=== PATIENT | male | born 2000 | race Caucasian/White ===

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

== ENCOUNTER 2020-08-27 11:53 | Emergency (ER) | payer MEDICAID ==
[2020-08-27 12:04] VITALS: BP 145/89
--- NOTE | 2020-08-27 12:15 | ED Physician Documentation ---
History of Present Illness - Stated complaint Stated Complaint: LT WRIST PAIN - Chief complaint Chief Complaint: Ext Problem - Additonal information Additional information: 20-year-old male presents emergency department for evaluation of acute left wrist pain sustained after a FOOSH while skateboarding 2 days ago. Is pain over the distal radius without deformity. He has been wearing a wrist splint as he suspects he fractured it. Denies any previous history of injury to this wrist. Patient is right-hand dominant Review of Systems Constitutional: reports: Reviewed and negative Ears: reports: Reviewed and negative Nose: reports: Reviewed and negative Cardiac: reports: Reviewed and negative Respiratory: reports: Reviewed and negative GI: reports: Reviewed and negative : reports: Reviewed and negative Skin: reports: Reviewed and negative Musculoskeletal: reports: Joint pain (left wrist) Neurologic: reports: Reviewed and negative PD PAST MEDICAL HISTORY - Past Medical History Past Medical History: Yes Cardiovascular: None Respiratory: None HEENT: None Psych: Depression - Past Surgical History Past Surgical History: Yes HEENT: Tonsil/Adenoidectomy - Present Medications Home Medications: Ambulatory Orders Medication Instructions Recorded Confirmed Ibuprofen [Motrin] 600 mg PO Q6H PRN #30 tab 08/27/20 - Allergies Allergies/Adverse Reactions: Allergies Allergy/AdvReac Type Severity Reaction Status Date / Time No Known Drug Allergies Allergy Verified 08/27/20 12:00 - Social History Does the pt smoke?: No Smoking Status: Never smoker Does the pt drink ETOH?: No Does the pt have substance abuse?: No - Immunizations Immunizations are current?: Yes PD ED PE NORMAL - General General: Alert and oriented X 3, No acute distress - Extremities Extremities: No deformity, Other (tenderness dorsum left wrist distla radis. No snuff box tenderness. 2+ radial pulse. distal neurovascular intact). 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 XANDER. He has tenderness over the dorsum of the wrist distal radius without deformity. Neurovascularly intact. There was no snuffbox tenderness. X-ray does not show any acute fracture or dislocation. Findings were discussed with the patient. I suspect this is more likely sprain versus contusion. He has an appropriate wrist brace that he has been wearing. We will encourage him to continue to wear it over the next week. If pain not markedly improved recommend follow-up with primary care provider or orthopedics for repeat evaluation. Also recommend NSAID and ice. Emergent return precautions discussed. Departure - Departure Disposition: 01 Home, Self Care Clinical Impression: Acute pain of left wrist Condition: Stable Record reviewed to determine appropriate education?: Yes Instructions: ED Sprain Wrist Follow-Up: [facility] [Provider Group] Prescriptions: Ibuprofen [Motrin] 600 mg PO Q6H PRN #30 tab PRN Reason: Pain Comments: The x-ray of your wrist does not show any broken bones. As we discussed I suspect that you most likely have contusion or sprain within the wrist. I suspect that this will begin to heal over the next week. I do recommend that you take the ibuprofen with food 2-3 times a day as well as ice the wrist and continue to wear the splint. If your pain is not markedly better over the next 7 to 10 days you should see your primary care provider or return for repeat x- ray. I have given you the name of follow-up with orthopedics that you can also call to schedule an appointment with.
--- OUTSIDE RECORDS SUMMARY | 2020-08-27 12:25 | EXTERNAL MEDICAL SUMMARY RPT | Continuity of Care Document ---
:2000 Demographics Phone Unavailable Preferred Language Unknown Marital Status Unknown [employer] Affiliation Unknown Race Unknown Ethnic Group Unknown Author Organization [facility] Address [address] [place] [address] Phone Social History date description facility [phone]
--- NOTE | 2020-08-27 12:35 | XRAY Report ---
PROCEDURE: Wrist 3 View LT INDICATIONS: r/o fx TECHNIQUE: 3 views of the wrist were acquired. COMPARISON: None FINDINGS: Bones: No acute fractures or dislocations. There is a faint sclerotic line across the distal radius which is favored to represent physeal plate scarring. No evidence for cortical disruption or irregul arity. No suspicious bony lesions. Soft tissues: No suspicious soft tissue calcifications. No significant soft tissue swelling. IMPRESSION: Left wrist without acute fracture or dislocation. If there is persistent clinical concern for a radiographically occult fracture given mechanism of inj ury, recommend immobilization and repeat imaging in 10 to 14 days. Reviewed by: Carlo Bell MD on 08/27/2020 12:34 PM PDT Approved by: Carlo Bell MD on 08/27/2020 12:34 PM PDT Station ID: [id number]
== END 2020-08-27 13:00 | disposition home or self-care (01) ==
LOC: ED 11:53
DX: M25.532 Pain in left wrist (principal); V00.131A Fall from skateboard, initial encounter
CPT/HCPCS: 99283

== ENCOUNTER 2021-06-24 14:15 | Emergency (ER) | payer MEDICAID ==
[2021-06-24 15:08] LABS: BILIRUBIN,URINE NEGATIVE (NEGATIVE); GLUCOSE, URINE (UA) NEGATIVE (NEGATIVE); KETONES,URINE (UA) NEGATIVE (NEGATIVE); LEUKOCYTE ESTERASE, URINE NEGATIVE (NEGATIVE); NITRITE,URINE NEGATIVE (NEGATIVE); OCCULT BLOOD,URINE SMALL (NEGATIVE); PROTEIN,URINE NEGATIVE (NEGATIVE); UROBILINOGEN,URINE 0.2 (NORMAL) E.U./dL (NORMAL)
[2021-06-24 15:14] LABS: CLARITY,URINE CLEAR (CLEAR)
[2021-06-24 15:20] LABS: BACTERIA,URINE None Seen /HPF (None Seen); RBC,URINE 0-5 /HPF (0-5); SQUAMOUS EPITHELIAL CELL,UR NONE SEEN (<= Few); WBC,URINE 0-3 /HPF (0-3)
--- NOTE | 2021-06-24 16:42 | ED Physician Documentation ---
History of Present Illness - Stated complaint Stated Complaint: MALE - Chief complaint Chief Complaint: UTI - Additonal information Additional information: 21-year-old male presents to the emergency department for evaluation of painless hematuria. States that for the last 2 days especially in the morning he notices a drop of blood right before the urine exits his urethra. He does not have any pain associated with this no history of similar in the past though he does have a history of urinary tract infection. He denies penile pain scrotal or testicular pain no abdominal pain fevers nausea or vomiting. He is sexually active does not use condoms. Review of Systems Constitutional: denies: Fever, Chills Eyes: reports: Reviewed and negative Ears: reports: Reviewed and negative Nose: reports: Reviewed and negative Throat: reports: Reviewed and negative Cardiac: denies: Chest pain / pressure, Palpitations Respiratory: reports: Reviewed and negative : reports: Hematuria. denies: Testicular pain, Testicular mass Skin: reports: Reviewed and negative PD PAST MEDICAL HISTORY - Past Medical History Cardiovascular: None Respiratory: None HEENT: None Psych: Depression - Past Surgical History Past Surgical History: Yes HEENT: Tonsil/Adenoidectomy - Present Medications Home Medications: Ambulatory Orders Medication Instructions Recorded Confirmed No Known Home Medications 06/24/21 06/24/21 - Allergies Allergies/Adverse Reactions: Allergies Allergy/AdvReac Type Severity Reaction Status Date / Time No Known Drug Allergies Allergy Verified 06/24/21 14:50 - Social History Does the pt smoke?: No Smoking Status: Never smoker Does the pt drink ETOH?: No Does the pt have substance abuse?: No - Immunizations Immunizations are current?: Yes PD ED PE NORMAL - General General: Alert and oriented X 3, No acute distress - HEENT HEENT: PERRL - Cardiac Cardiac: RRR, No murmur - Respiratory Respiratory: No respiratory distress, Clear bilaterally - Abdomen Abdomen: Normal bowel sounds, Soft, Non tender - Male Male : Other (Patient declined a exam.) - Back Back: No CVA TTP, No spinal TTP Results - Vitals Vitals: Vital Signs - 24 hr 06/24/21 14:46 Temperature 36.3 C L Heart Rate 61 Respiratory 16 Rate Blood Pressure 130/92 H O2 Saturation 99 Oxygen O2 Source Room air - Labs Labs: Laboratory Tests 06/24/21 06/24/21 06/24/21 14:35 16:43 16:43 WBC 5.5 RBC 4.96 Hgb 14.5 Hct 41.9 L MCV 84.5 MCH 29.2 MCHC 34.6 RDW 12.2 Plt Count 188 MPV 10.9 Neut # (Auto) 3.2 Lymph # (Auto) 1.7 [place] # (Auto) 0.5 Eos # (Auto) 0.1 Baso # (Auto) 0.0 Absolute Nucleated RBC 0.00 Nucleated RBC % 0.0 Sodium 136 Potassium 3.8 Chloride 102 Carbon Dioxide 25 Anion Gap 9.0 BUN 13 Creatinine 0.8 Estimated GFR (MDRD) 120 Glucose 93 Calcium 9.3 Urine Color YELLOW Urine Clarity CLEAR Urine pH 6.0 Ur Specific [place] <=1.005 Urine Protein NEGATIVE Urine Glucose (UA) NEGATIVE Urine Ketones NEGATIVE Urine Occult Blood SMALL H Urine Nitrite NEGATIVE Urine Bilirubin NEGATIVE Urine Urobilinogen 0.2 (NORMAL) Ur Leukocyte Esterase NEGATIVE Urine RBC 0-5 Urine WBC 0-3 Ur Squamous Epith Cells NONE SEEN Urine Bacteria None Seen Ur Microscopic Review INDICATED Urine Culture Comments NOT INDICATED PD MEDICAL DECISION MAKING - ED course Complexity details: reviewed results, re-evaluated patient, considered differential, d/w patient ED course: Well-appearing 21-year-old male presents emergency department for evaluation of painless hematuria which she describes as a drop of blood exiting his urethra right before the urine comes out. No history of similar in the past. No pain or fevers. Urine does show mild amount of blood but no findings suggestive of infection. GC is pending on the urine. Patient declined empiric treatment today in the ER. Screening CBC and BMP do not show any worrisome abnormalities. Specifically no anemia and his renal function is normal. If symptoms not improved he likely would benefit from referral to a urologist. Advanced imaging was deferred today given the lack of CVA tenderness or abdominal pain. Departure - Departure Disposition: 01 Home, Self Care Clinical Impression: Painless hematuria Condition: Stable Record reviewed to determine appropriate education?: Yes Instructions: Hematuria Poss Causes, ED Hematuria Comments: Rafael you were seen in the emergency department today for some blood in your urine. Your urine does not show signs of infection. Your screening blood counts and electrolyte panel including your kidney function are all normal. We are screening your urine for chlamydia and gonorrhea. If the results are positive you will be notified and you will need to return to the ER for further treatment. If you find that the symptoms do not improve over the next week to 10 days it is important that you establish with a primary care doctor because you may need referral to a urologist or further outpatient testing that is not indicated today in the ER. This testing could include ultrasound imaging of your kidneys or CAT scan of your abdomen. If at any point you develop fevers, have suddenly severe abdominal pain, uncon trolled vomiting or develop pain when you urinate then please return immediately to the ER for second evaluation.
[2021-06-24 16:48] LABS: BASOPHILS % (AUTO) 0.7 %; EOSINOPHILS # (AUTO) 0.1 10^3/uL (0.0-0.7); EOSINOPHILS % (AUTO) 1.6 %; HCT - HEMATOCRIT 41.9 % (42.0-52.0); HGB - HEMOGLOBIN 14.5 g/dL (14.0-18.0); LYMPHOCYTES # (AUTO) 1.7 10^3/uL (1.5-3.5); MEAN CORPUSCULAR HEMOGLOBIN 29.2 pg (27.0-31.0); MEAN CORPUSCULAR HGB CONC 34.6 g/dL (32.0-36.0); MEAN CORPUSCULAR VOLUME 84.5 fL (80.0-94.0); MEAN PLATELET VOLUME 10.9 fL (7.4-11.4); MONOCYTES # (AUTO) 0.5 10^3/uL (0.0-1.0); MONOCYTES % (AUTO) 8.2 %; NEUTROPHILS # (AUTO) 3.2 10^3/uL (1.5-6.6); NEUTROPHILS % (AUTO) 58.3 %; PLT - PLATELET COUNT 188 10^3/uL (130-450); RED BLOOD COUNT 4.96 10^6/uL (4.70-6.10); RED CELL DISTRIBUTION WIDTH 12.2 % (12.0-15.0); WHITE BLOOD COUNT 5.5 x10^3/uL (4.8-10.8)
[2021-06-24 17:02] LABS: CALCIUM 9.3 mg/dL (8.5-10.3); CREATININE 0.8 mg/dL (0.6-1.2); POTASSIUM 3.8 mmol/L (3.5-5.0)
[2021-06-24 17:13] VITALS: BP 124/88
[2021-06-24 20:23] LABS: CHLAMYDIA TRACHOMATIS DNA NEGATIVE (NEGATIVE); NEISSERIA GONORRHOEAE DNA NEGATIVE (NEGATIVE)
== END 2021-06-24 17:11 | disposition home or self-care (01) ==
LOC: ED 14:15
DX: R31.0 Gross hematuria (principal)
CPT/HCPCS: 36415; 80048; 81001; 81003; 85025; 87086; 87491; 87591; 87661; 99282; 99283